=== PATIENT | female | born 1945 | race Caucasian/White ===

== ENCOUNTER 2017-06-04 14:27 | Emergency (ER) | payer MEDICARE, MEDICAID ==
[~2017-06-04] VITALS: Ht 154.9 cm; Wt 61.4 kg
[~2017-06-04 14:27] MED LIST: GLIP10TA9 PO; GLIP5 PO; HYDR10TA31 PO; LOSA50TA37 PO; METF850T2 PO
[2017-06-04] MEDS ORDERED: ACETAMINOPHEN/CODEINE 300-30 MG TABLET PO ONE (16:15)
[2017-06-04] MEDS ORDERED: ValACYclovir HCL 500 MG TABLET PO ONE (16:15)
[2017-06-04 16:47] VITALS: BP 144/68
== END 2017-06-04 17:16 | disposition home or self-care (01) ==
LOC: EMS 14:28
DX: B02.9 Zoster without complications (principal); I11.0 Hypertensive heart disease with heart failure; I50.9 Heart failure, unspecified; E11.9 Type 2 diabetes mellitus without complications; Z88.8 Allergy status to other drugs, medicaments and biological substances
CPT/HCPCS: 82962; 99283